=== PATIENT | female | born 1990 | race Caucasian/White ===

== ENCOUNTER 2022-02-22 09:29 | Outpatient (CLI) | payer OTHER, SELFPAY ==
--- NOTE | 2022-02-22 09:41 | CRLHL7_ITS ---
For Patients: As a result of the Century Cures Act, medical imaging exams and procedure reports are released immediately into your electronic medical record. You may view this report before your referring provider. If you have questions, please contact your health care provider. INDICATION: Third trimester scan, evaluate growth. COVID DURING COMPARISON: 01/25/2022, 11/10/2021 TECHNIQUE: Real time santos scale imaging of the fetus was performed. FINDINGS: Sonographic imaging demonstrates a single living intrauterine gestation. Fetus demonstrates a regular cardiac rate of 168 beats per minute. Fetus has a vertex position. The placenta lies anteriorly. Amniotic fluid volume appears normal and there is a single deepest vertical pocket: 5.5 cm. The estimated weight is 2594gm which lies at the 39th %. On the prior OB ultrasound exam dated 01/25/2022 the estimated weight was at the 62nd%. BPD 54th percentile. HC 63rd percentile. AC 53rd percentile. FL 11th percentile. The HC/AC ratio measures 1.05 range (0.93-1.10). IMPRESSION: Sonographic gestational age 35 weeks 3 days and sonographic due date 03/26/2022. Good correlation with dates. Normal interval growth. Estimated weight 39th percentile. Abdominal circumference 53rd percentile. Dictated by Jhoan Thornton MD @ 02/22/2022 11:12:48 AM (Electronically Signed)
== END 2022-02-22 09:30 | disposition home or self-care (01) ==
LOC: US 09:29
PROVIDERS: Visit Provider Registered Nurse
DX: O98.512 Other viral diseases complicating pregnancy, second trimester (principal); U07.1 COVID-19; Z3A.35 35 weeks gestation of pregnancy
CPT/HCPCS: 76816

== ENCOUNTER 2022-02-22 14:56 | Outpatient (CLI) | payer OTHER, SELFPAY ==
[2022-02-23 16:17] LABS: Strep B DNA Probe NEGATIVE (Negative)
== END 2022-02-22 14:57 | disposition home or self-care (01) ==
LOC: NFLDREF 14:56
PROVIDERS: Visit Provider Advanced Practice Midwife
DX: O98.513 Other viral diseases complicating pregnancy, third trimester (principal); U07.1 COVID-19; Z3A.35 35 weeks gestation of pregnancy
CPT/HCPCS: 87081; 87653

== ENCOUNTER 2022-03-14 14:00 | Outpatient (CLI) | payer OTHER, SELFPAY ==
[2022-03-14 14:11] VITALS: BP 136/85; PULSE 86
[2022-03-14 14:27] VITALS: BP 132/86; PULSE 90
[2022-03-14 15:04] LABS: Appearance Urine Clear (Clear); Bilirubin Urine Negative (Negative); Blood Urine Trace-intact (Negative); Color Urine Yellow (Yellow); Glucose Urine Negative (Negative); Ketones Urine Negative (Negative); Leukocyte Esterase Urine 2+ (Negative); Nitrite Urine Negative (Negative); Protein Urine Negative (Negative); Specific Gravity Urine 1.015 (1.000-1.030); Urobilinogen Urine 0.2 (0.2-1.0)
[2022-03-14 15:09] LABS: Amnisure Rom* Negative
[2022-03-14 15:38] LABS: RBC Urine 0-2 (0-2)
[2022-03-14 16:56] LABS: Clue Cells No Clue Cells Seen (None Seen); Trichomonas No Trichomonas Seen (None Seen); Yeast No Yeast Seen (None Seen)
--- NOTE | 2022-03-14 17:14 | PC.OBNST ---
NST Note NST Note Start: 03/14/22 14:03 Freq: ONCE Status: Active Protocol: Document 03/14/22 16:58 [facility] (Rec: 03/14/22 17:01 [facility] [id number]) NST Note 1 Para (# of births) 0 EDC 03/26/22 Patient Presented with Complaint(s) of Contractions/cramping,Other Other Complaints Different smelling discharge than usual. Large contraction in abdomen at 1100 today followed by constant lower back ache/pain. Reactive Yes Appropriate for Gestational Age Yes DONNA Macdonald, RN Date 03/14/22 Reactive Yes Appropriate for Gestational Age Yes DONNA Albarran RN Date 03/14/22 OB NST charge Yes Complete NST Note via Write Note Yes The provider's electronic signature indicates the NST is reactive/appropriate for gestational age. *Note to provider: If an addendum is required, open the patient's chart and click on the note under the Nurse/Allied Health tab.
== END 2022-03-14 16:32 | disposition home or self-care (01) ==
LOC: OB OUT 14:00 → OB 16:20
PROVIDERS: Visit Provider Advanced Practice Midwife
DX: Z34.93 Encounter for supervision of normal pregnancy, unspecified, third trimester (principal); Z3A.38 38 weeks gestation of pregnancy
CPT/HCPCS: 59025; 81003; 81015; 84112; 87210; 99213

== ENCOUNTER 2022-03-22 10:29 | Outpatient (CLI) | payer OTHER, SELFPAY ==
[2022-03-22 12:41] LABS: Alanine Aminotransferase* 21 U/L (4-35); Aspartate Amino Transferase* 28 U/L (12-35)
[2022-03-22 12:42] LABS: Uric Acid* 4.2 mg/dL (2.2-8.4)
[2022-03-22 13:00] LABS: Total Protein Urine 11 mg/dL
[2022-03-22 13:03] LABS: Creatinine Urine 66.5 mg/dL
[2022-03-23 10:17] LABS: Blood Urea Nitrogen* 11 mg/dl (8-26); Creatinine* 0.6 mg/dl (0.6-1.3); Estimated Glomerular Filt Rate 122 ml/min
== END 2022-03-22 10:30 | disposition home or self-care (01) ==
PROVIDERS: Visit Provider Advanced Practice Midwife
DX: O26.899 Other specified pregnancy related conditions, unspecified trimester (principal); R51.9 Headache, unspecified
CPT/HCPCS: 82565; 82570; 84156; 84450; 84460; 84520; 84550

== ENCOUNTER 2022-03-30 07:15 | Inpatient (IN) | payer OTHER, SELFPAY ==
[2022-03-30] VITALS (24 sets, daily range): BP systolic 117–140; BP diastolic 64–88; PULSE 76–112; RESP 16–18; TEMP 36.6–36.8; O2SAT 98–100; BMI 33.5
[2022-03-30] MEDS: miSOPROStoL 25 MCG/0.25 TABLET VAGINAL ×4 (08:04→18:35)
--- NOTE | 2022-03-30 09:10 | W.PM.LDBA ---
Subjective History of Present Illness Time Seen by Provider: 09:11 Date Seen: 03/30/22 Narrative: Adina is being admitted to Labor and Delivery for an elective IOL. She is a 31 year old at 40 weeks 4 days gestation. Her full history and physical was dictated by Iris Feliz CNM on 03/08/2022. Please see this for details. Pt resting comfortably in bed, Wolf supportive at bedside. Pt discussed induction measures with Iris Fleiz CNM on Saturday in clinic, cervix closed and posterior. Planned induction with Cytotec, placed by RN this morning at 8:04am. Pt not feeling contractions or discomfort. OB Problem List Blood Type: O positive 1. Subchorionic hemorrhage x2. Asymptomatic 2. Covid positive 12/06/21. symptoms started 12/04/21. Out of quarantine 12/13/21 Growth US at 32 weeks: Growth US at 36 weeks: 39 %ile. surveillance starting at 36 weeks: no longer recommended IOL at 39 weeks. 3. Failed 1 hr glucose, 3 hr passed OB - H&P: Exam Physical Exam: Vital signs: Temp Pulse Resp BP 98.2 F 96 18 126/74 03/30/22 07:46 03/30/22 07:35 03/30/22 07:46 03/30/22 07:35 Constitutional: Constitutional: no acute distress Routine HEENT Exam: Head: Present normocephalic Eye: Present normal appearance Routine Neck Exam: Neck: Present full ROM Routine Chest/Breast/Axilla Exam: Chest wall: Absent tenderness Routine Respiratory Exam: Respiratory: Present CTA bilaterally Routine Cardiovascular Exam: Cardiovascular: RRR Routine Abdominal Exam: Comments: Gravid Detailed Labor and Delivery Exam: Patient Gravid: yes Cervix position: posterior Consistency: firm Tachysystole: No Comments: SVE: Long, thick & closed per RN Fetus (Single): Heart Rate Baseline: 140 Monitor Accelerations: Present Monitor Decelerations: None Nursing Home Variability: Average (6-10) Routine Back/Spine/Pelvis Exam: Back/Spine: full ROM Routine Skin Exam: Present intact, dry and warm Routine Neurological Exam: Present oriented X3 and normal speech Detailed Neurological Exam: Coma Scale: Eye Opening: Spontaneous (4) Routine Psychiatric Exam: Present normal affect and normal thought process OB - Problem Based A/P Additional Plan (1) : Status: Acute (2) Encounter for induction of labor: Status: Acute Plan ASSESSMENT:? 31 at 40 weeks, 4 days gestation? complicated by:?Covid infection during Labor type: Induced, Not in labor? Category 1 FHR pattern ?? GBS negative? PLAN:? 1. Routine intrapartum cares as ordered. Continue with expectant management? 2. Monitoring per policy, intermittent? 3. Candidate for analgesia of choice.?? 4. Patient encouraged to reposition and ambulate to promote physiologic labor and .? 6. Anticipate ? ?
[2022-03-30 09:36] LABS: SARS PCR* Negative SARS-CoV-2 (Negative)
--- NOTE | 2022-03-30 16:35 | PM.OBPNL ---
Pain Control Time Seen by Provider: 16:35 Date Seen: 03/30/22 Pain control: tolerating well (ambulation, stretching, not feeling pain at this time) Contractions Monitor mode: External Contraction frequency: 2 (90 seconds to 3 min) Contraction pattern: Regular Contraction intensity: Mild Fetus (Single) status: Category l Assessment and Plan Assessment: induction ongoing Plan: continue present management Comments: Assessment/Plan Adina ambulating around room, smiling and talking normally through contractions. Reports she can feel them but they are not causing discomfort at this point. Cytotec x3 EFM: 145 bpm, +accels, -decels, moderate variability: Cat 1 TOCO: q90sec - 3 min Cytotec vaginal q4 hours. Next dose due 1800. Continue present management Anticipate progression to active labor and
[2022-03-30] MEDS: LACTATED RINGERS 1000 ML 1,000 ML 925 ML IV ×2 (22:40→23:55)
[2022-03-30 22:50] LABS: Basophils Percent Auto 0.1 % (0.0-3.0); Eosinophils Percent Auto 0.3 % (0.0-7.0); Hemoglobin* 13.4 gm/dL (12.0-16.0); Immature Granulocytes Abs Auto 0.37 K/uL (0.00-0.30); Lymphocytes Percent Auto 22.7 % (20-44); Mean Corpuscular HGB Conc 34 gm/dL (32-36); Mean Corpuscular Hemoglobin 30 pg (26-34); Mean Corpuscular Volume 87 fL (80-100); Monocytes Percent Auto 6.6 % (0.0-11.0); Neutrophils Percent Auto 67.5 % (42.0-72.0); Platelet Count* 190 K/uL (140-440); RDW Coefficient of Variation % 13.1 % (11.5-15.5); Red Blood Count 4.49 m/uL (4.00-5.20); White Blood Count* 13.42 K/uL (4.50-11.00)
[2022-03-30] MEDS: fentaNYL 100 MCG/2 ML inj IVP (22:50)
[2022-03-30 22:52] LABS: Slide Review Reflex No
[2022-03-30] MEDS: LIDOCAINE 2% (PF) 5 ML VIAL EPIDURAL (23:16)
[2022-03-30] MEDS: ROPIVACAINE 0.2% 100 ml 100 ML 12 MG EPIDURAL (23:16)
--- NOTE | 2022-03-30 23:22 | P.ANBPRC_ITS ---
[facility] [place] History (Updated 03/08/22 @ 14:13 by Elsie Feliz CNM) History of eye surgery Social History Smoking Status: Never smoker Meds Home Medications and Allergies Home Medications Medication Instructions Recorded Confirmed Type calcium carbonate 200 mg calcium 200 mg PO BID 02/09/22 03/30/22 History (500 mg) chewable tablet (Tums) prenat.vits,lashanda,bxr-zzzh-yvoou 1 tab PO QDAY 02/09/22 03/30/22 History ranitidine HCl 300 mg tablet 300 mg PO DAILY 02/09/22 03/30/22 History Allergies Allergy/AdvReac Type Severity Reaction Status Date / Time No Known Allergies Allergy Unknown Verified 03/26/22 10:27 Results Labs Labs: Laboratory Results - last 24 hr 03/30/22 03/30/22 07:51 22:45 WBC 13.42 H RBC 4.49 Hgb 13.4 Hct 39.0 MCV 87 MCH 30 MCHC 34 RDW Coeff of Fadumo 13.1 Plt Count 190 Neut % (Auto) 67.5 Lymph % (Auto) 22.7 Rich % (Auto) 6.6 Eos % (Auto) 0.3 Baso % (Auto) 0.1 Neut # (Auto) 9.10 H Lymph # (Auto) 3.00 H Rich # (Auto) 0.90 Eos # (Auto) 0.00 Baso # (Auto) 0.00 Abs Immat Gran (auto) 0.37 H SARS-CoV-2 (PCR) Negative SARS-CoV-2 Vital Signs Vital Signs: Last Vital Signs Temp 98 F 03/30/22 20:10 Pulse 83 03/30/22 23:21 Resp 16 03/30/22 20:10 BP 122/75 03/30/22 23:21 Pulse Ox 100 03/30/22 23:21 Weight: 94.256 kg Height: 167.64 cm Anesthesia Procedures Epidural Insertion Patient Location: OB Reason for Block: primary anesthetic Patient Position: sitting Performed By: Yury Owusu Preanesthetic Checklist: IV checked, risks and benefits discussed, surgical consent, monitors and equipment checked, pre-op evaluation, timeout performed and anesthesia consent Prep: chlorhexidine gluconate Monitoring: blood pressure monitoring, tool honing machine set up operator, continuous pulse oximetry and heart rate Approach: midline Vertebral Space: lumbar (1-5) Needle Type: Tuohy needle Injection Technique: continuous catheter (catheter) Needle gauge: 17 Needle Length (cm): 10 cm Needle Insertion Depth (cm): 5 Catheter Gauge: 19 Catheter Type: multi-orifice Catheter at skin depth (cm): 10 Test Dose Result: negative and lidocaine 1.5% with epinephrine 1 to 200,000
[2022-03-30] MEDS: PHENYLEPHRINE 100 MCG/ML SYRINGE IVP ×3 (23:38→23:49)
[2022-03-31] VITALS (48 sets, daily range): BP systolic 103–153; BP diastolic 67–84; PULSE 70–108; RESP 14–18; TEMP 36.6–36.9; O2SAT 97–100
[2022-03-31] MEDS: ePHEDrine sulfate 5 MG/ML inj 10 MG IVP ×2 (00:02→00:37)
--- NOTE | 2022-03-31 00:21 | PM.OBPNL ---
Pain Control Time Seen by Provider: 00:21 Date Seen: 03/31/22 Pain control: epidural Contractions Monitor mode: External Contraction frequency: 2 (irregular, irritable, contractions not picking up well with TOCO) Contraction pattern: Irregular Contraction intensity: Mild Pelvic Exam Dilation (cm): 1.5 Effacement (%): 50 Station: -2 Fetus (Single) status: Category ll Comments: Adina is comfortable with epidural. She requested epidural due to intense back labor with the inability to tolerate positions or cervical exam. Possible SROM last evening, no fluid noted since. Called into assess patient after placement to better assess cervix and make a plan of care. Shortly before arrive, L&D called to discuss concern for repetitive late and variable decelerations. Supervising CNM called to come and assess. Assessment and Plan Assessment: prodromal labor and induction ongoing Plan: continue present management Comments: ASSESSMENT:? 31 at 40 weeks, 4 days gestation? complicated by:?Covid infection during Labor type: Induced, early labor? Category 2 FHR pattern ?? GBS negative? PLAN:? 1. Routine intrapartum cares as ordered. Continue with position changes, IV fluids, and phenylephrine to assist in status. 2. Monitoring per policy, continuous with epidural. Close monitoring of status. 3. Continue with epidural for pain.?? 4. Anticipate ?
--- NOTE | 2022-03-31 02:05 | PM.OBPNL ---
Pain Control Time Seen by Provider: 02:05 Date Seen: 03/31/22 Pain control: epidural Comments: Adina is comfortable with an epidural, resting well in bed. Cat 2 tracing continues, despite position changes, fluid, and treatment of blood pressure. Overall variability is moderate, but late decelerations present with most contractions. Repeat cervical exam unchanged, despite 2 hours of regular contractions. Uncertain of SROM, but bag not palpated with cervical exam. Contractions Monitor mode: External Contraction frequency: 2 (irregular, irritable, contractions not picking up well with TOCO) Contraction pattern: Irregular Contraction intensity: Mild Pelvic Exam Dilation (cm): 1.5 Effacement (%): 50 Station: -2 Comments: Midline, soft Fetus (Single) status: Category ll Assessment and Plan Plan: other Comments: ASSESSMENT:? 31 at 40 weeks, 5 days gestation? complicated by:?Covid infection during Labor type: Induced, Not in labor? Category 2 FHR pattern ?? GBS negative? PLAN:? 1. Discussed concerns with Dr. Cedillo with category 2 tracing, repetitive lates, remote from delivery.?Dr. Cedillo coming to assess. See her note for documentation. 2. Discussed and recommended a section with patient for reasons discussed with Dr. Cedillo. 3. Pt and given time to discuss options.
--- NOTE | 2022-03-31 02:41 | PM.OBPNL ---
Pain Control Date Seen: 03/31/22 Comments: I was asked to evaluate Adina by Henna Murphy CNM for concerns regarding HR tracing. Adina is a 25 yo woman at 40 4/7 weeks' gestation who is having elective IOL. She has received 4 doses of vaginal Cytotec for cervical ripening. Her most recent cervical exam was 1 cm / 50 / -2. There is uncertainty regarding membrane status. tracing has exhibited baseline 155, accels present, moderate variability, and recurrent late decelerations for greater than one hour. Late decelerations have happened intermittently throughout her labor course, and have become consistent in recent history. She has an epidural for pain. Contractions Monitor mode: External Contraction frequency: 2 (irregular, irritable, contractions not picking up well with TOCO) Contraction pattern: Irregular Contraction intensity: Mild Fetus (Single) status: Category ll Assessment and Plan Comments: A: intolerance of labor remote from delivery. P: I recommended primary delivery for status. We discussed risks of , including bleeding /hemorrhage, infection, damage to internal organs, thromboembolism, scarring, effect on future pregnancies / labors. Consent form reviewed with and signed by patient.
--- NOTE | 2022-03-31 03:13 | SUR.OPER ---
PATIENT QUESTIONS ANSWERED SATISFACTORILY PREOPERATIVELY.? PATIENT BROUGHT TO OR #5 PER CART BY OB RN's.? Patient positioned supine on OR #5 bed.? The perioperative?team supported arms bilaterally on arm boards.?Final approval of positioning by surgeon.? PT. COMES INTO OR #5 WITH A PATENT JIMÉNEZ CATHETER ALREADY IN PLACE FROM OB FLOOR.
--- NOTE | 2022-03-31 04:01 | P.NB_ITS ---
Nerve Block Nerve Block Time Seen by Provider: 04:15 Date Seen: 03/31/22 Type of block requested by surgeon for post-operative analgesia: TAP Side: bilateral Time out performed: Yes Verification of patient name: Yes Verification of date of : Yes Site marking: not applicable Name of person performing procedure: Yury Owusu CRNA Continuous monitoring Was continuous monitoring of O2 sat, B/P, manager monitoring, recorded every 15 minutes?: Yes Procedure Checklist: sterile prep, needles and gloves Ultrasound guided. Images saved: Yes Medications given in 5ml increments after negative aspiration: Marcaine and Exparel Patient tolerated procedure well: Yes Block Charges Block Charge (with Pro Fee): TAP Bilateral Use of Ultrasound Machine for Block: Yes- US Guidance/pain block
--- NOTE | 2022-03-31 04:06 | PM.OBPRCCS ---
Procedure Pre-op/Post-op diagnoses: Pre-Op/Post-Op Diagnoses Operation Date: 03/31/22 03:15 <No data on this case meets the specified criteria> Procedure Done: Global Procedure Details: Procedures Operation Date: 03/31/22 03:15 Actual Procedure Side Surgeon p Section Sarah Cedillo MD Estimated blood loss (mL): 1,255 Disposition: floor Anesthesia type: Epidural Narrative: PREOPERATIVE DIAGNOSIS: intolerance of labor, remote from delivery POSTOPERATIVE DIAGNOSIS: Same PROCEDURE: Primary low-transverse section SURGEON: Sarah Cedillo MD ANESTHESIA: Epidural IV FLUIDS: 1200 mL crystalloid QBL: 1255 mL URINE OUTPUT: 700 mL FINDINGS: 1. Female infant, cephalic OPP presentation, Apgars of 8 and 9, weight 3190 g 2. Normal appearance to uterus, bilateral tubes and ovaries. COMPLICATIONS: Intraoperative hemorrhage, primarily related to 1st bleeding along the left angle the hysterotomy, probably resolved with hysterotomy closure. PROCEDURE IN DETAIL: Patient was taken to the operating room with IV running. She received cefazolin in preoperative prophylaxis. Epidural anesthesia had previously been administered. Arteaga catheter was inserted. She was prepped and draped in the usual sterile fashion. Anesthesia was tested and found to be adequate. A low-transverse skin incision was made with a scalpel and carried through to the underlying layer of fascia with the scalpel. The subcutaneous fat was dissected off the underlying fascia with Bovie. The fascia was nicked in the midline with a scalpel, and this incision was extended laterally with scissors. The rectus muscles were in the midline. Peritoneum was identified and entered bluntly. Bovie was used to widen this opening laterally. Mason O retractor was inserted and tightened down, providing excellent visualization of the lower uterine segment. The bladder reflection was found to be well below the planned site for hysterotomy. Low-transverse uterine incision was made with a scalpel. Incision was widened bluntly. The infant's head was grasped through the hysterotomy and delivered with the help of fundal pressure. The remainder of the body delivered without incident. Cord was clamped and cut after 30 seconds. was handed off to attending nurses. The placenta was delivered with gentle traction on the cord. The uterus was cleaned of all clots and debris with the dry lap pad. The left angle was bleeding profusely and there was a small hematoma beneath the serosa along this side. The hysterotomy was reapproximated with 0 Vicryl in a running, locked fashion, which immediately staunched the brisk bleeding. Second layer of the same suture was used in imbricating fashion to obtain excellent hemostasis. The adnexa were examined and noted to be normal in appearance. The cul-de-sac and gutters were cleansed with dampened laparotomy sponge, removing any further clots and debris. The Mason O retractor was removed. The hysterotomy was reexamined and found to be hemostatic. The peritoneum was reapproximated with 2 0 Vicryl in a running fashion. The rectus muscles were examined and found to be hemostatic. The fascia was reapproximated with 0 Vicryl in a running fashion. Subcutaneous fat was irrigated and Bovie used on oozing vessels. The subcutaneous fat was reapproximated with 2 0 plain gut suture in an interrupted fashion. The skin was closed with a subcuticular stitch of 4-0 Vicryl. Surgical glue was applied above this. Patient tolerated procedure well was taken to recovery area in stable condition. OB Delivery Proc Additional Procedures Tubal Ligation at the time of : No
--- NOTE | 2022-03-31 04:33 | W.ANESCHARGE ---
Anesthesia Charges Start Date/Time Anesthesia Start Date: 03/31/22 Anesthesia Start Time: 02:46 Stop Date/Time Anesthesia Stop Date: 03/31/22 Anesthesia Stop Time: 04:27 Summary Emergency: Yes
[2022-03-31 07:57] LABS: Basophils Percent Auto 0.1 % (0.0-3.0); Hematocrit 27.9 % (33.0-51.0); Hemoglobin* 9.5 gm/dL (12.0-16.0); Immature Granulocytes Abs Auto 0.13 K/uL (0.00-0.30); Lymphocytes Percent Auto 13.6 % (20-44); Mean Corpuscular HGB Conc 34 gm/dL (32-36); Mean Corpuscular Hemoglobin 30 pg (26-34); Mean Corpuscular Volume 88 fL (80-100); Monocytes Percent Auto 6.3 % (0.0-11.0); Platelet Count* 153 K/uL (140-440); RDW Coefficient of Variation % 13.3 % (11.5-15.5); Red Blood Count 3.16 m/uL (4.00-5.20); White Blood Count* 12.47 K/uL (4.50-11.00)
[2022-03-31 08:00] LABS: Slide Review Reflex No
[2022-03-31] MEDS: ACETAMINOPHEN 500 MG TABLET 1000 MG PO ×3 (08:22→20:33)
[2022-03-31] MEDS: KETOROLAC 30 MG/ML inj IVP ×3 (10:54→23:26)
[2022-03-31] MEDS: FERROUS SULFATE 325 MG TABLET PO (18:36)
[2022-03-31] MEDS: DOCUSATE SODIUM 100 MG CAPSULE PO (18:36)
[2022-04-01] VITALS (7 sets, daily range): BP systolic 118–137; BP diastolic 77–78; PULSE 82–98; RESP 16; TEMP 36.9–37.2; O2SAT 96–98
[2022-04-01] MEDS: KETOROLAC 30 MG/ML inj IVP (05:31)
[2022-04-01 07:09] LABS: Hemoglobin* 9.6 gm/dL (12.0-16.0)
[2022-04-01] MEDS: FERROUS SULFATE 325 MG TABLET PO (08:07)
[2022-04-01] MEDS: DOCUSATE SODIUM 100 MG CAPSULE PO (08:08)
[2022-04-01] MEDS: ACETAMINOPHEN 500 MG TABLET 1000 MG PO ×3 (08:26→20:47)
--- NOTE | 2022-04-01 11:32 | PM.OBPNCS1 ---
OB - PN: A/P Assessment and Plan (1) : Status: Resolved (2) Encounter for induction of labor: Status: Resolved (3) Acute blood loss anemia: Status: Acute (4) Status post primary low transverse section: Status: Acute (5) Intraoperative hemorrhage: Status: Acute Plan Patient doing well, meeting goals after . Anemia of acute blood loss, asymptomatic. Plan to continue oral iron. Patient would like to go home tomorrow only if everything continues to go well. Plan day: 1 Plan: routine postop care OB - PN: Subj Subjective Date Seen: 04/01/22 Patient comments: pain well controlled, tolerating diet and flatus present status: Narrative: POD 1, doing well. Eating w/o nausea or vomiting. Ambulating w/o SOB or dizziness. OB - PN: Obj Exam Physical Exam: Vital signs: Temp Pulse Resp BP Pulse Ox O2 Del Method 98.5 F 92 16 137/78 96 04/01/22 08:00 04/01/22 08:00 04/01/22 08:00 04/01/22 08:00 04/01/22 08:00 04/01/22 08:00 Narrative: General: Alert, active and oriented x3 Chest: Clear to auscultation x2, regular rate and rhythm of the heart Abdomen: Uterus well contracted, nontender, incision healing well, no surrounding erythema, induration or abnormal discharge Pelvic: Minimal blood, normal lochia OB - PN: Obj Data Labs Labs: Laboratory Results - last 24 hr 04/01/22 06:58 Hgb 9.6 L
[2022-04-01] MEDS: IBUPROFEN 600 MG TABLET PO ×2 (17:46→23:35)
[2022-04-02] MEDS: ACETAMINOPHEN 500 MG TABLET 1000 MG PO ×2 (02:38→08:37)
[2022-04-02] MEDS: IBUPROFEN 600 MG TABLET PO ×2 (05:34→11:23)
[2022-04-02] MEDS: DOCUSATE SODIUM 100 MG CAPSULE PO (08:23)
[2022-04-02] MEDS: FERROUS SULFATE 325 MG TABLET PO (08:23)
[2022-04-02 08:45] VITALS: BP 117/78; PULSE 75; RESP 16; TEMP 37.1; O2SAT 98
--- NOTE | 2022-04-02 08:46 | SUR.PHASEI ---
This nurse completed Phase I times and completion of that phase of care based on Isabel Tineo's charting in recovery.
--- NOTE | 2022-04-02 08:54 | P.DS_ITS ---
DS: Providers Provider Time Seen by Provider: 08:54 Date Seen: 04/02/22 Date of admission: 03/30/22 07:15 Primary care physician: Not a Local Provider Admitting Clinician: Elsie Feliz CNM Attending Physician on discharge: Malena Aaron CNM & Henna Murphy CNM Date of Discharge: 04/02/22 DS: Diagnosis Discharge Diagnosis (1) Acute blood loss anemia: Status: Acute (2) Status post primary low transverse section: Status: Acute (3) state: Status: Acute (4) Lactating mother: Status: Acute Exam Const: Vital Signs, click to edit/add: Vital Signs - 24 hr 04/01/22 16:27 04/01/22 23:35 Temperature 98.9 F 98.6 F Pulse Rate [Pulse Oximeter] 98 82 Respiratory Rate 16 16 Blood Pressure [Le ft Arm] 126/77 118/77 Pulse Oximetry 98 98 Oxygen Delivery Me thod Room Air Room Air Documenting provider has reviewed patient's vital signs: yes Common normals: no apparent distress, average body habitus, oriented x3, no limitations, healthy appearing, alert and well nourished General appearance: cooperative, comfortable, well kempt and well developed Orientation/consciousness: Yes awake, Yes oriented to person, Yes oriented to place and Yes oriented to time HENMT: Common normals: normocephalic Head and scalp: normocephalic Eye: General eye: normal appearance of both eyes Neck & C-Spine: Common normals: full ROM and supple Chest: Common normals: inspection of chest normal and palpation of chest normal Chest: symmetrical chest wall rise Resp: Common normals: normal respiratory effort and clear to auscultation bilaterally Effort & inspection: symmetric chest movement Auscultation: clear to auscultation bilaterally Cardio: Common normals: regular rate and regular rhythm Rate: regular rate Rhythm: regular rhythm GI: Common normals: soft to palpation and non-tender Inspection: normal to inspection Palpation: soft : Uterus: U/U and firm Lochia: scant Extremity: Common normals: normal to inspection and full ROM General: edema (+1 bipedal) Neuro: Common normals: oriented x3 Sensorium/orientation: awake, alert, oriented to person, oriented to place and oriented to time Psych: Common normals: mental status grossly normal Appearance: well kempt Skin: Common normals: no rashes or lesions noted Narrative: Abdominal, lower transverse incision well approximated, dry and no drainage. General skin exam: no rashes or lesions noted OB - DS: Summary Hospital Course Hospital Course: The patient is a 31 year old G1 now P1 at 40 weeks 4 days gestation that was admitted to the [facility] on 03/30/22 for labor. She had an uncomplicated delivery r/t intolerance of labor. She delivered a viable female , Roslyn. She is breast feeding without difficulty. Pt is ambulating, showering, voiding, passing flatus and has had a bowel movement with out concern. the patient has done well. Peripartum Data Procedures: Procedures Operation Date: 03/31/22 03:15 Actual Procedure Side Surgeon p Section Sarah Cedillo MD Gender: Female Infant Discharge Plan: Home Time Spent with Patient Time attestation: Total time spent providing and/or coordinating discharge services: Time spent: Less than 30 minutes Discharge Plan Discharge Disposition: Home, Self-Care Date of Admission: 03/30/22 07:15 Attending Provider on Discharge: Mildred Aaron Primary Care Provider: Provider,Not a Local Condition: Improved Anticipated Discharge Date/Time: 04/02/22 04:10 Discharge Medications: New acetaminophen 500 mg Tablet 1,000 mg PO Q6H PRN (Reason: pain/fever) Qty: 0 0RF ferrous sulfate 325 mg (65 mg iron) Tablet 325 mg PO DAILYWM 14 Days Qty: 14 0RF docusate sodium 100 mg Capsule 100 mg PO DAILY 30 Days Qty: 30 0RF ibuprofen 600 mg Tablet 600 mg PO Q6H PRN (Reason: Pain) 30 Days Qty: 60 0RF oxycodone 5 mg Tablet 5 - 10 mg PO Q4H PRN (Reason: Pain) 7 Days Qty: 20 0RF Continued prenat.vits,lashanda,[id number] Tablet 1 tab PO QDAY ranitidine HCl 300 mg tablet 300 mg PO DAILY calcium carbonate [Tums] 200 mg calcium (500 mg) tablet,chewable 200 mg PO BID No Action (DME) Cockup Brace, Wrist Misc See Rx Instructions .Route Qty: 1 0RF Rx Instructions: As directed Discharge Orders: Discharge Order (Routine); Ordered 04/02/22 Ordered By: Mildred Aaron Patient Education: OB /Breast Feeding Activity Restrictions/Additional Instructions: Discharge instructions were reviewed with the patient including signs and symptoms of infection and home going medications Lifting Restrictions: 20 pounds for 6 weeks No not submerge incision under water X 2 weeks? Nothing vaginally for 6 weeks: no tampons or intercourse Do not drive while taking narcotic pain medication(s) Off Work or School for 8 weeks Symptoms to report to doctor: * Bleeding that saturates more than one pad per hour * Passing clots larger than the size of a golf ball * Pain not relieved by prescribed medication * Fever above 100.4 degrees Fahrenheit * A foul vaginal odor * Difficulty in emotions, mood, and functions * Thoughts of hurting yourself and/or * Painful, reddened area in your breast * Any drainage, redness, or tenderness in your IV/epidural site * Severe headache that doesn't improve after taking medications * Changes in vision, including temporary loss of vision, blurred vision, and/or light sensitivity * Upper abdominal pain (usually under ribs on the right side) * Decrease in urination or painful, frequent urinating * Chest pain * Shortness of breath * Tenderness or pain with redness and/swelling in the calf(s) of your leg 2-week visit: incision check, discuss feeding concerns, review control options and screen for anxiety/depression. 6-week visit for an annual exam. consultation services are available to all mothers and babies for the first year after delivery.? To make an appointment, please call [phone]. Activity Level: Activity as Tolerated and No strenuous activity Discharge Diet: Regular Follow Up Appointments: [facility] [Provider Group] (2 & 6 weeks) Forms: [facility] Info Instructions
== END 2022-04-02 13:39 | disposition home or self-care (01) | DRG 787 ==
PROVIDERS: Advanced Practice Midwife; Obstetrics & Gynecology; Admitting Provider Advanced Practice Midwife; Visit Provider Advanced Practice Midwife
PROC: 10D00Z1 Extraction of Products of Conception, Low, Open Approach (ICD-10-PCS; CPT 59514; principal; 2022-03-31 03:00)
DX: O48.0 Post-term pregnancy (principal); D62 Acute posthemorrhagic anemia; O90.81 Anemia of the puerperium; O67.8 Other intrapartum hemorrhage; O76 Abnormality in fetal heart rate and rhythm complicating labor and delivery; Z37.0 Single live birth; Z86.16 Personal history of COVID-19; Z3A.40 40 weeks gestation of pregnancy
CPT/HCPCS: 01967; 01968; 36415; 59200; 64488; 76942; 85018; 85025; 86850; 86900; 86901; 87635; 99140; A9270; C9290; J1885; J2274; J2370; J2405; J2590; J2795; J3010; J3490; J7120

== ENCOUNTER 2022-04-06 10:12 | Outpatient (CLI) | payer OTHER, SELFPAY ==
--- NOTE | 2022-04-06 13:13 | W.PM.LAC.MC ---
Consult Note - Mom Date of Visit Date of visit: 04/06/22 design studio consultant: Mely Akins Visit Code: Visit Patient's Information Phone number: [phone] : 1 Para: 1 Allergies No Known Allergies Allergy (Unknown, Verified 03/26/22 10:27) Mother's Medical History: Medical History (Updated 04/03/22 @ 00:00 by ) Intraoperative hemorrhage + COVID in Delivery Information Delivery type: Primary C/S; Labored ( intolerance) Weeks Gestation: 40.5 Gestational Age: AGA Weight: 3.19 kg Discharge Weight: 2.97 kg Baby's Information Baby's Age at Visit: 6 days Baby's Provider or Clinic: Dr. Shearer Jaundice: No Reason for Consult Reason for Consult: painful latch Past Experience Past Experience: No Current Frequency of Day Feedings: every 2 - 4 hours around the clock Both Breasts: Yes (mom offers) Suck: not very aggressive on a finger Latch: fairly shallow Length of Time: 10 - 40 minutes total Pumping Pumping: Yes (only to stop the leaking) Supplementing EMB Supplement: No Formula Supplement: No Baby Elimination Number of Wet Diapers a Day: 6 - 10 Number of BM a Day: 2 - 4; yellow and seedy Breast/Nipple Condition Breast Information: WNL Engorgement: No (no engorgement but full) Maternal Nipple Condition - Left: Common Nipple Maternal Nipple Condition - Right: Common Nipple Sore Nipples: Yes Onsite Pre-Feed weight: 3.228 kg Post-Feed weight: 3.306 kg Milk Transferred (mL): 78 Pre-Nursing Left Nipple: Within Normal Limits Pre-Nursing Right Nipple: Within Normal Limits Post-Nursing Left Nipple: Within Normal Limits Post-Nursing Right Nipple: Within Normal Limits Assessments/Interventions Assessments/Interventions: Met with mom and this now 6 day old ex- term AGA baby for consult.? Mom reports a hx of cracked and bleeding nipples that are beginning to heal; she'd like tips on how to make more comfortable as well as a review of her pump flange size.? She is exclusively and baby nurses every 2 - 4 hours.? Mom offers both sides and she nurses from 10 - 40 minutes total each session.? She has an Carina pump but has only used it when she needs to stop the leaking. Breasts WNL- symmetrical with rounded lower quadrants, they are full but not engorged.? Nipples are everted and don't flatten or retract with compression; right shows no signs of damage, the left has a very small area of damage in the center of the nipple. Baby has gained 47 grams/day since her visit with PCP on 04/03/22 and is already 38 grams above BW on DOL 6!? Her upper frenulum isn't tight and her lower frenulum appears to be WNL.? She may have somewhat of a high palate and when sucking on a finger she isn't that aggressive.? Her tongue doesn't consistently extend past the gum line but has good lateral movement.? Per mom she has equal ROM when turning her head and moving her extremities.? She denied there was any injury (bruising/caput/cepalohematoma). Mom latched baby in the cross cradle hold to the left side but it was a shallow latch and mom stated it was painful.? She was encouraged to hand express and after about a minute she got almost .5 oz.? Then with verbal instruction to point her nipple to baby's nose and bring baby to the breast quickly when she opened her mouth, she was able to get baby on more deeply and reported the latch was much more comfortable.? After a few minutes she was able to stop supporting her breast and baby maintained her deep latch nursing for about 15 minutes.? Mom repeated the above steps when latching baby to the right and had success getting a much more comfortable latch.? Baby nursed for about 5 minutes before coming off; she transferred 78 ml.? Mom he was given a [employer] Breastmilk Woven Label Designer and used that on the right side just until she was comfortable. We reviewed her flange size and it was suggested she order a smaller size for the right side. Plan: 1.? Continue to nurse baby ALD- don't let her go past 4 hours for now.? If baby is having a hard time getting a deep latch, hand express a little milk before nursing.? Use the tips above to get and keep a wide latch and offer both sides at each feeding. 2. Use the breastmilk specimen collector after nursing prn to make herself comfortable.? No need to start pumping yet. 3. No need to supplement.? We reviewed that anything she expresses in one day can go in the same container, then be labeled and frozen. 4. Will f/u with Dr. Shearer for a 2 week [facility] and in for a one month pre and post weight check.? At that visit will discuss pumping to store for when she returns to work,and tips for introducing a bottle. Meds Home Medications and Allergies Home Medications Medication Instructions Recorded Confirmed Type calcium carbonate 200 mg calcium 200 mg PO BID 02/09/22 03/30/22 History (500 mg) chewable tablet (Tums) prenat.vits,lashanda,[id number] 1 tab PO QDAY 02/09/22 03/30/22 History ranitidine HCl 300 mg tablet 300 mg PO DAILY 02/09/22 03/30/22 History Allergies Allergy/AdvReac Type Severity Reaction Status Date / Time No Known Allergies Allergy Unknown Verified 03/26/22 10:27
== END 2022-04-06 10:13 | disposition home or self-care (01) ==
LOC: OB LAC 10:12
PROVIDERS: Visit Provider Advanced Practice Midwife
DX: Z39.1 Encounter for care and examination of lactating mother (principal)
CPT/HCPCS: 99211

== ENCOUNTER 2025-04-09 07:15 | Day surgery (SDC) | payer BC, SELFPAY ==
[2025-04-09] VITALS (13 sets, daily range): BP systolic 106–116; BP diastolic 60–77; PULSE 51–58; RESP 14–18; TEMP 36.3–36.8; O2SAT 96–100; BMI 25.9
[2025-04-09 07:55] LABS: Ur HCG Qualitative* Negative (Negative)
[2025-04-09] MEDS: SODIUM CHLORIDE 0.9 % (FLUSH) 10 ML SYRINGE IVF (08:29)
[2025-04-09] MEDS: LACTATED RINGERS 1000 ML 1,000 ML 100 ML IV (08:29)
--- NOTE | 2025-04-09 08:53 | W.PM.H&PU ---
History & Physical Update History & Physical Update H&P Reviewed and patient assessed: No changes noted
--- NOTE | 2025-04-09 09:16 | P.GYNPRC_ITS ---
Procedure Note Date of procedure: 04/09/25 Will [facility] bill your pro fee for this procedure?: Yes Pre-op diagnosis: Undesired fertility Post-op diagnosis: Same Procedure: Laparoscopic bilateral salpingectomy Removal of Mirena IUD Anesthesia: GETA Complications: None Surgeon: Sarah Cedillo MD Estimated blood loss (mL): 5 IV fluids (mL): 550 Urine Output (mL): 200 Pathology: specimen obtained, sent to pathology (Bilateral Fallopian tubes) Condition: stable Disposition: same day Findings: 1. Upon pelvic exam under anesthesia, the cervix and vagina were normal in appearance. IUD was not visualized at the ectocervical os. Uterus was mobile and midposition, of normal size and texture. There were no palpable adnexal masses. IUD appeared intact upon removal. 2. Upon laparoscopy, survey of the upper abdomen revealed a normal appearance to the inferior edge of the liver, gallbladder and stomach. Bowels were grossly normal appearance, as was the appendix. There was a single adhesion of the omentum to the subumbilical region. Survey of the pelvis revealed normal ap pearance to the uterus. There were some filmy adhesions of the epiploica of the sigmoid colon to the left broad ligament. Bilateral tubes and ovaries were normal in appearance. The cul-de-sac and bladder reflection were normal in appearance. Procedure Description: Patient was taken to the operating room with IV running. She was positioned in dorsal lithotomy position with her legs fully supported in Yellofin stirrups. General anesthesia was administered. She was prepped and draped in the usual sterile fashion. Bimanual exam was performed for the above-noted findings. Speculum was inserted. A single-toothed tenaculum was attached to the anterior lip of the cervix. IUD string was not visualized. A polyp forceps was inserted gently through the cervix into the endometrial cavity and used to grasp the IUD strings, bringing them the cervical os. The strings were then grasped with polyp forceps and the IUD was removed successfully with gentle traction. A single-toothed uterine manipulator was inserted through the cervix into the lower uterine segment, and affixed to the anterior cervical lip. The single- tooth tenaculum was then removed. Speculum was removed. Arteaga catheter was placed. Patient's legs were placed in neutral position. Attention was turned to patient's abdomen. The infraumbilical area was infiltrated with small amount of Marcaine. An infraumbilical incision was made with a scalpel and carried through to the underlying layer of fascia with a hemostat. The 5 mm Fios Kii trocar was assembled with laparoscope within, and insufflator attached. While tenting up the abdomen with the help of a Hiral clamp on the fascia, the trocar was passed through the anterior abdominal wall into the peritoneal cavity. Trocar was removed. Pneumoperitoneum was achieved. Survey of abdomen and pelvis revealed the above-noted findings. Two additional port sites were created. The first was in the patient's left lower quadrant, just superior medial to the left ASIS. The second was a hand's breath superior to and slightly medial to the first. Each was infiltrated with small amount of Marcaine prior to incision. A 5 mm incision was made at each site, making sure the large vessels were out of harm's way. A 5 mm Fios Kii port was inserted at each site, under direct visualization and without complication. The balloon on each of the three ports was inflated, holding each in place. The infraumbilical adhesion of the omentum was lysed with the Thunderbeat device. Hemostasis was noted. The left tube was elevated. The blood supply was cauterized and transected with the Thunderbeat cautery device. Dissection was carried laterally to medially through the mesosalpinx, and the tube was ultimately cauterized and transected at the left uterine cornua. Hemostasis was noted. Left tube was removed through the port and sent to pathology. This procedure was repeated on the right side, and hemostasis was again noted. Right tube was removed and sent to pathology. All instruments were removed from the ports, and pneumoperitoneum was released. The ports were removed. The skin of each port site was closed with a subcuticular stitch of 4-0 Monocryl. Surgical glue was applied above this. With the patient's legs back in lithotomy position, the uterine manipulator was removed. Hemostasis was noted. The Arteaga catheter was removed. Patient tolerated procedure well and was taken to recovery area in stable condition.
--- NOTE | 2025-04-09 09:43 | P.ANES_ITS ---
Anesthesia Charges Start Date/Time Anesthesia Start Date: 04/09/25 Anesthesia Start Time: 09:28 Stop Date/Time Anesthesia Stop Date: 04/09/25 Anesthesia Stop Time: 10:33 Coding CPT Codes CPT Codes: ANESTH TUBAL LIGATION - 35477 ([id number]) P1 - NORMAL HEALTHY PATIENT, QX - CHILD CARE SPECIALIST YOMI W/ MED DIRECTION, QK - RN PICU 2-4 CNCRNT ANES PROC
--- NOTE | 2025-04-09 09:43 | W.ANESCHARGE ---
Anesthesia Charges Start Date/Time Anesthesia Start Date: 04/09/25 Anesthesia Start Time: 09:28 Stop Date/Time Anesthesia Stop Date: 04/09/25 Anesthesia Stop Time: 10:33 Coding CPT Codes CPT Codes: ANESTH TUBAL LIGATION - 28438 ([id number]) P1 - NORMAL HEALTHY PATIENT, QX - SCALLOP CUTTER MACHINE YOMI W/ MED DIRECTION, QK - MANAGING DIRECTOR 2-4 CNCRNT ANES PROC
[2025-04-09] MEDS: BUPIVACAINE 0.25% 30 ML INJECTION (09:58)
--- NOTE | 2025-04-09 10:43 | P.ANES_ITS ---
Anesthesia Charges Start Date/Time Anesthesia Start Date: 04/09/25 Anesthesia Start Time: 09:28 Stop Date/Time Anesthesia Stop Date: 04/09/25 Anesthesia Stop Time: 10:33 Coding CPT Codes CPT Codes: ANESTH SURG LOWER ABDOMEN - 88140 ([id number]) QK - FILM AND VIDEO GRAPHICS DESIGNER 2-4 CNCRNT ANES PROC, QX - ECONOMIC DEVELOPMENT SPECIALIST SVC W/ MD MED DIRECTION, P1 - NORMAL HEALTHY PATIENT
--- NOTE | 2025-04-09 10:43 | W.ANESCHARGE ---
Anesthesia Charges Start Date/Time Anesthesia Start Date: 04/09/25 Anesthesia Start Time: 09:28 Stop Date/Time Anesthesia Stop Date: 04/09/25 Anesthesia Stop Time: 10:33 Coding CPT Codes CPT Codes: ANESTH SURG LOWER ABDOMEN - 35671 ([id number]) QK - TRACKMOBILE OPERATOR 2-4 CNCRNT ANES PROC, QX - NURSING AGENCY MANAGER SVC W/ MD MED DIRECTION, P1 - NORMAL HEALTHY PATIENT
[2025-04-09] MEDS: ACETAMINOPHEN 500 MG TABLET 1000 MG PO (11:25)
== END 2025-04-09 12:15 | disposition home or self-care (01) ==
LOC: OR 07:17
PROVIDERS: PCP Family Medicine; Visit Provider Obstetrics & Gynecology
PROC: (CPT 58661; principal; 2025-04-09 08:30)
DX: Z30.2 Encounter for sterilization (principal); Z30.432 Encounter for removal of intrauterine contraceptive device
CPT/HCPCS: 58661; 58301; 00840; 00851; 36415; 81025; 86850; 86900; 86901; 88302; A9270; J0330; J0665; J1100; J1171; J1885; J2250; J2405; J2704; J3010; J3490; J7120